=== PATIENT | male | born 1980 | race Two or more races ===

== ENCOUNTER 2021-05-21 16:52 | Observation (INO) ==
--- NOTE | 2021-05-21 17:26 | Emergency Department Note ---
History of Present Illness General Chief complaint: Cardiac Assessment Time Seen by Provider: 05/21/21 17:13 History of Present Illness Maximum Pain Intensity: 4 41-year-old male presents to the ED with a chief complaint of right-sided chest pain that started 4 days ago. He states that he cannot recall what he was doing when it started. He states that it is worse when he takes a deep breath. It feels like a pressure sensation. He also notices it when he coughs. He has not had a cough but it is states that he coughs on occasion just to clear his throat. Denies any fevers. No shortness of breath. No additional complaints. Home Medications Medication Instructions Recorded Confirmed Type ibuprofen 200 mg tablet 400 mg PO TID 05/21/21 05/21/21 History Allergies Allergy/AdvReac Type Severity Reaction Status Date / Time No Known Allergies Allergy Unverified 05/21/21 20:26 Past Med/Surg History Social History Smoking Status: Never smoker Communication Tools: IPad Feels Safe at Home: Yes Review of Systems A total of 10 systems reviewed and were otherwise negative Physical Exam Vital Signs Vital Signs - 24 hr 05/21/21 16:52 05/21/21 18:29 05/21/21 19:27 Temperature 36.8 C Temperature Source Oral Pulse Rate 51 L Pulse Rate [Finger] 41 L Pulse Rhythm Regular Pulse Rhythm [Finger] Irregular Pulse Strength Normal Pulse Strength [Finger] Normal Respiratory Rate 19 20 Respiratory Effort / Characteristics Non-Labored Non-Labored Respiratory Depth Normal Normal Respiratory Pattern Regular Blood Pressure 156/95 H Blood Pressure [Left Arm] 131/81 Blood Pressure Mean 115 Blood Pressure Mean [Left Arm] 97 Blood Pressure Position Lying Blood Pressure Position [Left Arm] Sitting Pulse Oximetry 98 98 99 Oxygen Delivery Method Room Air Room Air Room Air Oxygen Flow Rate 0 Sepsis Recent Fever Within 48 Hours No Sepsis New/Unexplained Change in Mental Status N/A Sepsis Action Taken by Nursing No Action Required 05/21/21 21:03 Temperature Temperature Source Pulse Rate Pulse Rate [Finger] 45 L Pulse Rhythm Pulse Rhythm [Finger] Pulse Strength Pulse Strength [Finger] Respiratory Rate 22 Respiratory Effort / Characteristics Non-Labored Respiratory Depth Normal Respiratory Pattern Blood Pressure Blood Pressure [Left Arm] 134/93 Blood Pressure Mean Blood Pressure Mean [Left Arm] 106 Blood Pressure Position Blood Pressure Position [Left Arm] Pulse Oximetry 99 Oxygen Delivery Method Room Air Oxygen Flow Rate Sepsis Recent Fever Within 48 Hours Sepsis New/Unexplained Change in Mental Status Sepsis Action Taken by Nursing CONSTITUTIONAL/VITAL SIGNS: Reviewed / noted above. GENERAL: Non-toxic in appearance. INTEGUMENTARY: Warm, dry, and [place]. HEAD: Normocephalic. EYES: without scleral icterus or trauma. ENT/OROPHARYNX: clear and moist. LYMPHADENOPATHY/NECK: Is supple without lymphadenopathy or meningismus. RESPIRATORY: Clear to auscultation bilaterally. No increased work of breathing. CARDIOVASCULAR: Regular rate and rhythm. GI/ABDOMEN: Soft and nontender. No organomegaly or pulsatile mass. EXTREMITIES: Warm and well perfused. BACK: No CVA tenderness. NEUROLOGICAL: Intact without focal deficits. PSYCHIATRIC: normal affect. MUSCULOSKELETAL: Normally developed with good muscle tone. TRIAGE NURSING DOCUMENTATION REVIEWED. Course Administered Medications Discontinued Medications Acetaminophen (Acetaminophen 500 Mg Tab) 500 mg PO NOW STA Stop: 05/21/21 21:39 Last Admin: 05/21/21 21:43 Dose: 500 mg Documented by: [id number] Medical Decision Making Differential Diagnosis The differential that was considered includes acute myocardial infarction, acute coronary syndrome, myocarditis, pericarditis, pericardial effusions /tamponade, esophageal perforation, thoracic aortic dissection, pulmonary embolism, pne umonia, pneumothorax, pancreatitis, shingles, acute cholecystitis, perforated abdominal viscus. Medical Records Attestation: I reviewed the patient's medical records. Home Medications Current Medication List: was personally reviewed by me Laboratory Data Result diagrams: 05/21/21 17:00 05/21/21 17:00 Lab Results 05/21/21 05/21/21 05/21/21 Range/Units 17:00 17:00 17:00 WBC 6.56 (4.8-10.8) K/uL RBC 4.44 L (4.7-6.1) M/uL Hgb 15.1 (14.0-18.0) g/dL Hct 43.1 (42-52) % MCV 97.1 (80-100) fL MCH 34.0 (25-34) pg MCHC 35.0 (32-36) g/dL RDW Std Deviation 43.2 (36.4-46.3) fL RDW Coeff of Miah 12.1 (11.5-14.5) % Plt Count 221 (130-400) K/uL MPV 11.4 H (7.4-10.4) fL Immature Gran % (Auto) 0.3 % Neut % (Auto) 41.8 % Lymph % (Auto) 43.3 % [place] % (Auto) 9.3 % Eos % (Auto) 4.7 % Baso % (Auto) 0.6 % Neut # (Auto) 2.74 (1.4-6.5) K/uL Lymph # (Auto) 2.84 (1.2-3.4) K/uL [place] # (Auto) 0.61 H (0.11-0.59) K/uL Eos # (Auto) 0.31 (0-0.5) K/uL Baso # (Auto) 0.04 (0-0.2) K/uL Immature Gran # (Auto) 0.02 (0.00-0.02) K/uL PT 11.4 (9.0-12.0) Seconds INR 1.1 (0.9-1.1) APTT 27.8 (21.0-31.0) Seconds PTT Ratio 1.0 Sodium 140 (136-145) mmol/L Potassium 4.2 (3.5-5.1) mmol/L Chloride 105 (98-107) mmol/L Carbon Dioxide 25 (21-32) mmol/L Anion Gap 10 (3-11) BUN 18 (6-23) mg/dl Creatinine 1.06 (0.6-1.4) mg/dl Est Cr Clr Drug Dosing 90.0 ml/min Est GFR ( Amer) 101.2 ml/min Est GFR (Non-Af Amer) 87.4 ml/min BUN/Creatinine Ratio 17.0 (10-20) Glucose 71 (70-99(Fasting)) mg/dl Calcium 9.2 (8.5-10.1) mg/dl Magnesium 2.0 (1.7-2.4) mg/dl Total Bilirubin 0.4 (0.2-1.0) mg/dl AST 37 (13-39) U/L ALT 46 (7-52) U/L Alkaline Phosphatase 107 H (34-104) U/L Troponin I < 0.03 (0-0.04) ng/ml Total Protein 7.8 (6.0-8.3) gm/dl Albumin 4.4 (3.4-5.0) gm/dl Globulin 3.4 (2.5-4.0) gm/dl Albumin/Globulin Ratio 1.3 (0.9-2) TSH (0.300-4.500) uIu/ml Urine Color Urine Appearance (Clear) Urine pH (4.5-7.5) Ur Specific Oral (1.000-1.030) Urine Protein (Negative) Urine Glucose (UA) (Negative) Urine Ketones (Negative) Urine Blood (Negative) Urine Nitrite (Negative) Urine Bilirubin (Negative) Urine Urobilinogen (Negative) Ur Leukocyte Esterase (Negative) Urine Opiates Screen (Neg) Ur Methadone, Qual (Neg) Urine Barbiturates (Neg) Ur Phencyclidine (PCP) (Neg) U Amphetamin/Meth Scrn (Neg) MDMA (Ecstasy) Screen (Neg) U Benzodiazepines Scrn (Neg) Ur Cocaine Metabolite (Neg) U Marijuana (THC) Screen (Neg) Lyme Disease IgG Ab (Negative) Lyme Disease IgM Ab (Negative) SARS-CoV-2, RNA, NAAT (NEGATIVE) 05/21/21 05/21/21 05/21/21 Range/Units 17:00 17:00 18:06 WBC (4.8-10.8) K/uL RBC (4.7-6.1) M/uL Hgb (14.0-18.0) g/dL Hct (42-52) % MCV (80-100) fL MCH (25-34) pg MCHC (32-36) g/dL RDW Std Deviation (36.4-46.3) fL RDW Coeff of Miah (11.5-14.5) % Plt Count (130-400) K/uL MPV (7.4-10.4) fL Immature Gran % (Auto) % Neut % (Auto) % Lymph % (Auto) % [place] % (Auto) % Eos % (Auto) % Baso % (Auto) % Neut # (Auto) (1.4-6.5) K/uL Lymph # (Auto) (1.2-3.4) K/uL [place] # (Auto) (0.11-0.59) K/uL Eos # (Auto) (0-0.5) K/uL Baso # (Auto) (0-0.2) K/uL Immature Gran # (Auto) (0.00-0.02) K/uL PT (9.0-12.0) Seconds INR (0.9-1.1) APTT (21.0-31.0) Seconds PTT Ratio Sodium (136-145) mmol/L Potassium (3.5-5.1) mmol/L Chloride (98-107) mmol/L Carbon Dioxide (21-32) mmol/L Anion Gap (3-11) BUN (6-23) mg/dl Creatinine (0.6-1.4) mg/dl Est Cr Clr Drug Dosing ml/min Est GFR ( Amer) ml/min Est GFR (Non-Af Amer) ml/min BUN/Creatinine Ratio (10-20) Glucose (70-99(Fasting)) mg/dl Calcium (8.5-10.1) mg/dl Magnesium (1.7-2.4) mg/dl Total Bilirubin (0.2-1.0) mg/dl AST (13-39) U/L ALT (7-52) U/L Alkaline Phosphatase (34-104) U/L Troponin I (0-0.04) ng/ml Total Protein (6.0-8.3) gm/dl Albumin (3.4-5.0) gm/dl Globulin (2.5-4.0) gm/dl Albumin/Globulin Ratio (0.9-2) TSH 1.900 (0.300-4.500) uIu/ml Urine Color Yellow Urine Appearance Clear (Clear) Urine pH 6.0 (4.5-7.5) Ur Specific Oral 1.006 (1.000-1.030) Urine Protein Negative (Negative) Urine Glucose (UA) Negative (Negative) Urine Ketones Negative (Negative) Urine Blood Negative (Negative) Urine Nitrite Negative (Negative) Urine Bilirubin Negative (Negative) Urine Urobilinogen Negative (Negative) Ur Leukocyte Esterase Negative (Negative) Urine Opiates Screen (Neg) Ur Methadone, Qual (Neg) Urine Barbiturates (Neg) Ur Phencyclidine (PCP) (Neg) U Amphetamin/Meth Scrn (Neg) MDMA (Ecstasy) Screen (Neg) U Benzodiazepines Scrn (Neg) Ur Cocaine Metabolite (Neg) U Marijuana (THC) Screen (Neg) Lyme Disease IgG Ab Negative (Negative) Lyme Disease IgM Ab Negative (Negative) SARS-CoV-2, RNA, NAAT (NEGATIVE) 05/21/21 05/21/21 Range/Units 18:06 21:00 WBC (4.8-10.8) K/uL RBC (4.7-6.1) M/uL Hgb (14.0-18.0) g/dL Hct (42-52) % MCV (80-100) fL MCH (25-34) pg MCHC (32-36) g/dL RDW Std Deviation (36.4-46.3) fL RDW Coeff of Miah (11.5-14.5) % Plt Count (130-400) K/uL MPV (7.4-10.4) fL Immature Gran % (Auto) % Neut % (Auto) % Lymph % (Auto) % [place] % (Auto) % Eos % (Auto) % Baso % (Auto) % Neut # (Auto) (1.4-6.5) K/uL Lymph # (Auto) (1.2-3.4) K/uL [place] # (Auto) (0.11-0.59) K/uL Eos # (Auto) (0-0.5) K/uL Baso # (Auto) (0-0.2) K/uL Immature Gran # (Auto) (0.00-0.02) K/uL PT (9.0-12.0) Seconds INR (0.9-1.1) APTT (21.0-31.0) Seconds PTT Ratio Sodium (136-145) mmol/L Potassium (3.5-5.1) mmol/L Chloride (98-107) mmol/L Carbon Dioxide (21-32) mmol/L Anion Gap (3-11) BUN (6-23) mg/dl Creatinine (0.6-1.4) mg/dl Est Cr Clr Drug Dosing ml/min Est GFR ( Amer) ml/min Est GFR (Non-Af Amer) ml/min BUN/Creatinine Ratio (10-20) Glucose (70-99(Fasting)) mg/dl Calcium (8.5-10.1) mg/dl Magnesium (1.7-2.4) mg/dl Total Bilirubin (0.2-1.0) mg/dl AST (13-39) U/L ALT (7-52) U/L Alkaline Phosphatase (34-104) U/L Troponin I (0-0.04) ng/ml Total Protein (6.0-8.3) gm/dl Albumin (3.4-5.0) gm/dl Globulin (2.5-4.0) gm/dl Albumin/Globulin Ratio (0.9-2) TSH (0.300-4.500) uIu/ml Urine Color Urine Appearance (Clear) Urine pH (4.5-7.5) Ur Specific Oral (1.000-1.030) Urine Protein (Negative) Urine Glucose (UA) (Negative) Urine Ketones (Negative) Urine Blood (Negative) Urine Nitrite (Negative) Urine Bilirubin (Negative) Urine Urobilinogen (Negative) Ur Leukocyte Esterase (Negative) Urine Opiates Screen Neg (Neg) Ur Methadone, Qual Neg (Neg) Urine Barbiturates Neg (Neg) Ur Phencyclidine (PCP) Neg (Neg) U Amphetamin/Meth Scrn Neg (Neg) MDMA (Ecstasy) Screen Neg (Neg) U Benzodiazepines Scrn Neg (Neg) Ur Cocaine Metabolite Neg (Neg) U Marijuana (THC) Screen Neg (Neg) Lyme Disease IgG Ab (Negative) Lyme Disease IgM Ab (Negative) SARS-CoV-2, RNA, NAAT NEGATIVE (NEGATIVE) Imaging Data Radiologist's Impression: Chest X-Ray 05/21/21 17:18 XR chest 1V portable HISTORY: 41 years-old Male Chest Pain acute atypical chest pain COMPARISON: None TECHNIQUE: Portable AP view of the chest FINDINGS: The cardiomediastinal and hilar silhouettes are within normal limits. No pneumothorax, pleural effusion, airspace consolidation or overt pulmonary edema. The bones of the chest appear grossly intact. IMPRESSION: No acute process. ACT 112: Negative or not required by law. The above report was generated using voice recognition software. It may contain grammatical, syntax or spelling errors. Electronically signed by: Bacilio Navarrete M.D. 05/21/2021 5:31 PM ECG Data Attestation: I personally reviewed and interpreted this ECG as follows: Additional Comments: Twelve-lead EKG: Per my interpretation shows a sinus bradycardia at a rate of 45 with a sinus arrhythmia. No ST elevations. No PVCs. MDM Narrative 41-year-old male presents with right-sided chest pain for 4 days as detailed above. The patient's chest x-ray was negative for acute disease. EKG shows a sinus bradycardia. He occasionally had junctional rhythm on the monitor. His heart rate sometimes dips into the low 30s. He seems to be hemodynamically stable with that. The patient has a negative troponin and unremarkable CBC and chemistry panel. Lyme test was negative. Urine did not show infection and drug screen was negative as well. Because of the patient's bradycardia with sometimes pauses and junctional rhythm, he will be seen by the hospitalist for further inpatient evaluation and care. Impression & Plan Chest pain, Bradycardia Discharge Plan Visit Data Chief Complaint: Cardiac Assessment ED Provider: Danilo Patiño Discharge Problem: Chest pain, Bradycardia Patient Disposition: Being Evaluated by Hospitalist Forms Stand Alone Forms: [facility], [facility] Emergency Department, Important Visit Information Prescriptions Prescriptions: No Action ibuprofen 200 mg Tablet 400 mg PO TID RF: 0 Referrals Referrals: PCP,NO [Physician] -
--- NOTE | 2021-05-21 17:33 | XRay Report ---
XR chest 1V portable HISTORY: 41 years-old Male Chest Pain acute atypical chest pain COMPARISON: None TECHNIQUE: Portable AP view of the chest FINDINGS: The cardiomediastinal and hilar silhouettes are within normal limits. No pneumothorax, pleural effusi on, airspace consolidation or overt pulmonary edema. The bones of the chest appear grossly intact. IMPRESSION: No acute process. ACT 112: Negative or not required by law. The above report was generated using voice recognition software. It may contain grammatical, syntax o r spelling errors. Electronically signed by: Bacilio Navarrete M.D. 05/21/2021 5:31 PM
[2021-05-21 18:33] LABS: Basophils # (auto) 0.04 K/uL (0-0.2); Basophils % (auto) 0.6 %; Eosinophils # (auto) 0.31 K/uL (0-0.5); Eosinophils % (auto) 4.7 %; Hematocrit (blood only) 43.1 % (42-52); Hemoglobin 15.1 g/dL (14.0-18.0); Immature Granulocytes # (auto) 0.02 K/uL (0.00-0.02); Immature Granulocytes % (auto) 0.3 %; Lymphocytes # (auto) 2.84 K/uL (1.2-3.4); Lymphocytes % (auto) 43.3 %; Mean Corpuscular Volume 97.1 fL (80-100); Mean Platelet Volume 11.4 fL (7.4-10.4); Monocytes # (auto) 0.61 K/uL (0.11-0.59); Monocytes % (auto) 9.3 %; Neutrophils # (auto) 2.74 K/uL (1.4-6.5); Neutrophils % (auto) 41.8 %; Platelet Count 221 K/uL (130-400); RDW Coefficient of Variation 12.1 % (11.5-14.5); RDW Standard Deviation 43.2 fL (36.4-46.3); Red Blood Count 4.44 M/uL (4.7-6.1); White Blood Count 6.56 K/uL (4.8-10.8)
[2021-05-21 18:42] LABS: INR 1.1 (0.9-1.1); Partial Thromboplastin Time 27.8 Seconds (21.0-31.0); Prothrombin Time 11.4 Seconds (9.0-12.0)
[2021-05-21 19:07] LABS: Troponin I < 0.03 ng/ml (0-0.04)
[2021-05-21 19:16] LABS: Alanine Aminotransferase 46 U/L (7-52); Albumin Globulin Ratio 1.3 (0.9-2); Albumin Level 4.4 gm/dl (3.4-5.0); Alkaline Phosphatase 107 U/L (34-104); Anion Gap 10 (3-11); Aspartate Aminotransferase 37 U/L (13-39); Bilirubin,Total 0.4 mg/dl (0.2-1.0); Blood Urea Nitrogen 18 mg/dl (6-23); Calcium 9.2 mg/dl (8.5-10.1); Carbon Dioxide 25 mmol/L (21-32); Chloride 105 mmol/L (98-107); Est GFR (African American) 101.2 ml/min; Est GFR (Non-African American) 87.4 ml/min; Globulin 3.4 gm/dl (2.5-4.0); Glucose 71 mg/dl (70-99(Fasting)); Potassium 4.2 mmol/L (3.5-5.1); Sodium 140 mmol/L (136-145); Total Protein 7.8 gm/dl (6.0-8.3)
[2021-05-21 19:21] LABS: Lyme Ab IgG w/WB Rflx Negative (Negative); Lyme Ab IgM w/WB Rflx Negative (Negative)
[2021-05-21 19:56] LABS: Appearance Urine Clear (Clear); Bilirubin Urine Negative (Negative); Blood Urine Negative (Negative); Color Urine Yellow; Glucose Urine UA Negative (Negative); Ketones Urine Negative (Negative); Leukocyte Esterase Urine Negative (Negative); Nitrite Urine Negative (Negative); Protein Urine Negative (Negative); Specific Gravity Urine 1.006 (1.000-1.030); Urobilinogen Urine Negative (Negative)
[2021-05-21 20:25] LABS: Amphetamines+Metham, Urine Neg (Neg); Barbiturates, Urine Neg (Neg); Benzodiazepine, Urine Neg (Neg); Cocaine, Urine Neg (Neg); MDMA (Ecstacy), Urine Neg (Neg); Methadone, Urine Neg (Neg); Opiate, Urine Neg (Neg); Phencyclidine, Urine Neg (Neg)
[2021-05-21] MEDS ORDERED: ACETAMINOPHEN 500 MG TAB PO STA (21:38)
[2021-05-21] MEDS ORDERED: POLYETHYLENE (MIRALAX) 17 GM PACK PO PRN (23:58)
[2021-05-21] MEDS ORDERED: ACETAMINOPHEN 325 MG TAB PO PRN (23:58)
[2021-05-21] MEDS ORDERED: ONDANSETRON INJ 2 MG/ML 2 ML VIAL IV PRN (23:58)
[2021-05-21] MEDS ORDERED: NITROGLYCERIN SL 0.4 MG/TAB TAB SL PRN (23:58)
[2021-05-22 00:52] LABS: D Dimer 8180 ug/L FEU (0-500)
[2021-05-22] MEDS ORDERED: SODIUM CHLORIDE 0.9% 1000ML 1,000 ML IV SCH (01:00)
[2021-05-22] MEDS ORDERED: OPTIRAY 320 125ml IV ONE (01:49)
--- NOTE | 2021-05-22 02:30 | History and Physical Report ---
DATE OF ADMISSION: 05/21/2021. CHIEF COMPLAINT: Chest pain. HISTORY OF PRESENT ILLNESS: A 41-year-old male with no significant past medical history who presents with chest pain. The patient comes from [facility]. He states he was doing pushups about 4 days ago when he started having some right-sided chest pain going to the back, burning kind of pain, 5/10 in severity. Pain is more when he takes a deep breath, and had some shortness of breath, which prompted him to come to the ER. In the ER, his initial workup is negative and hemodynamically stable, but he is having sinus bradycardia and we were called for admission. Currently, resting comfortably. Denies any headache. No blurred vision, no earache, no runny nose, no sore throat, no cough. Appetite is good. No nausea, no abdominal pain. Normal bowel and bladder movements. Otherwise, active. ALLERGIES: No known drug allergies. PAST MEDICAL HISTORY: None. PAST SURGICAL HISTORY: None. MEDICATIONS: None. FAMILY HISTORY: The patient does not know of any family history. SOCIAL HISTORY: No smoking. Alcohol, used to drink socially. REVIEW OF SYSTEMS: As per HPI. Rest of review of systems is negative. PHYSICAL EXAMINATION: GENERAL: The patient is of moderate build, not in acute distress. VITAL SIGNS: Temperature 36.8, pulse 45, respiratory rate 22, blood pressure 134/93, oxygen 99% on room air. HEENT: Right pupil slightly more dilated than left. Oral mucosa moist. NECK: No JVD. No neck masses. CARDIOVASCULAR: S1 and S2 heard. Bradycardia. No murmurs. RESPIRATORY SYSTEM: Normal AP diameter. No accessory muscle use. No wheezing, no crackles. ABDOMEN: Soft, bowel sounds present, nontender, no distention. CENTRAL NERVOUS SYSTEM: Cranial nerves II through XII are grossly intact, nonfocal. EXTREMITIES: No edema, no erythema. LABORATORY DATA: WBC 6.5, hemoglobin 15.1, hematocrit 43.1, platelets 221. PT 11.4, INR 1.1, APTT 27.8. Sodium 140, potassium 4.2, chloride 105, bicarbonate 25, CO2 of 25, BUN 18, creatinine 1.06, serum glucose 71, calcium 9.2, magnesium 2, total bilirubin 0.4, AST 34, ALT 46, alkaline phosphatase 107. Troponin I less than 0.03. Urinalysis negative. Drug screen negative. Lyme screen negative. SARS-CoV-2 rapid test negative. IMAGING DATA: Chest x-ray, no acute process. EKG: Sinus bradycardia with sinus arrhythmia at a rate of 45 and T-wave inversion in leads V3, V4. ASSESSMENT AND PLAN: This is a 41-year-old male who presents with chest pain. 1. Chest pain: Started after pushups 4 days ago. Could be musculoskeletal. The patient says he is having more pain when he is taking deep breath. Elevated d dimer. CTA chest preliminary report NO PE.. Will do serial cardiac enzymes and echo. Will follow cpk levels. Keep n.p.o. after midnight and consult cardiology in the a.m. 2. Sinus bradycardia: As per the ER was junctional on monitor for some time.. Will follow echo and serial enzymes repeat ekg and tele monitor and await cardiac input. 3. Deep venous thrombosis prophylaxis: Sequential compression devices. DISPOSITION: Admit to observation in tele floor. Social service to help with discharge planning. Level 1 full code. Addendum: Question of right pupil slightly more dilated than the left. The patient has no headache or any nausea or any other symptoms. CT head ok.. Job ID: [id number] [facility]
--- NOTE | 2021-05-22 07:13 | CT Scan Report ---
HEAD CT NONCONTRAST CT DOSE: 614.27 mGy.cm HISTORY: right pupil sluggish reaction to light? TECHNIQUE: Multiaxial CT images of the head were performed without the use of intravenous contrast. A utomated exposure control was utilized for this study. A dose lowering technique was utilized adheri ng to the principles of ALARA. Comparison: None. Findings: The paranasal sinuses and mastoid air cells are clear. The calvarium and skull base are int act. The ventricles and sulci are within normal limits. There is no mass, hematoma, midline shift, or acute infarct. Small amount of residual contrast within the brain from the recent chest CTA. Impression: No acute intracranial abnormality. ACT 112: Negative or not required by law. Electronically signed by: Natanael Wheeler M.D. 05/22/2021 7:12 AM
--- NOTE | 2021-05-22 07:31 | CT Scan Report ---
CT angio chest PE protocol CLINICAL HISTORY: Chest pain. Evaluate for pulmonary embolus. COMPARISON STUDY: Portable chest from 05/21/2021 CT DOSE: 347.55 mGy.cm TECHNIQUE: CT Angio of the chest was performed.followed by image post processing with coronal, and s agittal MIP reformats. Contrast Volume: Optiray 320, 116 ml FINDINGS: Vasculature: There is homogeneous perfusion of the pulmonary vasculature bilaterally. No intraluminal filling defects or evidence for pulmonary embolus is seen. Airway: The airway is clear. No endobronchial lesion is identified. Lungs: The lungs are clear of acute alveolar opacities, air bronchograms or pulmonary nodules. Pleura: There is no evidence for pleural effusion. There is no evidence for pneumothorax. Mediastinum: There is no evidence for pathologic adenopathy. The heart size is within normal limits. The thoracic aorta is within normal limits. There is no evidence for pericardial effusion. Upper abdomen:The adrenal glands are normal bilaterally. Osseous structures: There is no acute osseous pathology. Impression: 1. No CTA evidence for pulmonary embolus. 2. No acute chest disease. ACT 112: Negative or not required by law. Electronically signed by: Tariq Ware M.D. 05/22/2021 7:30 AM
[2021-05-22 07:45] LABS: Basophils # (auto) 0.05 K/uL (0-0.2); Basophils % (auto) 0.7 %; Eosinophils # (auto) 0.25 K/uL (0-0.5); Eosinophils % (auto) 3.5 %; Hematocrit (blood only) 45.3 % (42-52); Hemoglobin 15.9 g/dL (14.0-18.0); Immature Granulocytes # (auto) 0.01 K/uL (0.00-0.02); Immature Granulocytes % (auto) 0.1 %; Lymphocytes # (auto) 3.03 K/uL (1.2-3.4); Lymphocytes % (auto) 41.9 %; Mean Corpuscular Hemoglobin 33.8 pg (25-34); Mean Corpuscular Hgb Conc 35.1 g/dL (32-36); Mean Corpuscular Volume 96.4 fL (80-100); Mean Platelet Volume 10.7 fL (7.4-10.4); Monocytes # (auto) 0.48 K/uL (0.11-0.59); Monocytes % (auto) 6.6 %; Neutrophils # (auto) 3.41 K/uL (1.4-6.5); Neutrophils % (auto) 47.2 %; Platelet Count 223 K/uL (130-400); RDW Coefficient of Variation 12.1 % (11.5-14.5); RDW Standard Deviation 42.8 fL (36.4-46.3); White Blood Count 7.23 K/uL (4.8-10.8)
[2021-05-22 08:29] LABS: Anion Gap 7 (3-11); Blood Urea Nitrogen 14 mg/dl (6-23); Carbon Dioxide 27 mmol/L (21-32); Chloride 107 mmol/L (98-107); Est GFR (African American) 101.2 ml/min; Est GFR (Non-African American) 87.4 ml/min; Sodium 141 mmol/L (136-145)
[2021-05-22 08:30] LABS: BUN Creatinine Ratio 13.2 (10-20); Calcium 9.5 mg/dl (8.5-10.1); Creatinine Clr Calc Pharmacy 86.2 ml/min; Glucose 87 mg/dl (70-99(Fasting))
[2021-05-22 08:50] LABS: Troponin I < 0.03 ng/ml (0-0.04)
[2021-05-22] MEDS ORDERED: ASPIRIN 81 MG ECTAB PO SCH (09:00)
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
--- NOTE | 2021-05-22 14:34 | Electrocardiogram Report ---
Test Reason : Blood Pressure : / mmHG Vent. Rate : 045 BPM Atrial Rate : 045 BPM P-R Int : 164 ms QRS Dur : 100 ms QT Int : 468 ms P-R-T Axes : 045 004 018 degrees QTc Int : 404 ms Sinus bradycardia with sinus arrhythmia T wave abnormality, consider anterior ischemia Abnormal ECG No previous ECGs available Confirmed by Kirk Chamorro ([id number]) on 05/22/2021 2:33:43 PM Referred By: Tyler Cruz Confirmed By:Kirk Chamorro
--- NOTE | 2021-05-22 14:36 | Electrocardiogram Report ---
Test Reason : Blood Pressure : / mmHG Vent. Rate : 037 BPM Atrial Rate : 037 BPM P-R Int : 148 ms QRS Dur : 104 ms QT Int : 506 ms P-R-T Axes : 047 000 013 degrees QTc Int : 397 ms Marked sinus bradycardia with occasional Premature atrial complexes T wave abnormality, consider anterior ischemia Abnormal ECG When compared with ECG of 21-MAY-2021 17:00, (unconfirmed) No significant change was found Confirmed by Kirk Chamorro ([id number]) on 05/22/2021 2:35:54 PM Referred By: Tyler Cruz Confirmed By:Kirk Chamorro
--- NOTE | 2021-05-22 14:37 | Electrocardiogram Report ---
Test Reason : Blood Pressure : / mmHG Vent. Rate : 038 BPM Atrial Rate : 038 BPM P-R Int : 000 ms QRS Dur : 096 ms QT Int : 508 ms P-R-T Axes : 000 008 019 degrees QTc Int : 403 ms Sinus bradycardia with junctional escape complexes Nonspecific T wave abnormality Abnormal ECG When compared with ECG of 21-MAY-2021 18:41, (unconfirmed) No significant change Confirmed by Kirk Chamorro ([id number]) on 05/22/2021 2:36:38 PM Referred By: Tyler Cruz Confirmed By:Kirk Chamorro
--- NOTE | 2021-05-22 14:41 | Electrocardiogram Report ---
Test Reason : Blood Pressure : / mmHG Vent. Rate : 041 BPM Atrial Rate : 041 BPM P-R Int : 146 ms QRS Dur : 086 ms QT Int : 472 ms P-R-T Axes : 023 003 -21 degrees QTc Int : 389 ms Marked sinus bradycardia with Premature atrial complexes in a pattern of bigeminy T wave abnormality, consider anterolateral ischemia Abnormal ECG When compared with ECG of 21-MAY-2021 18:41, (unconfirmed) T wave inversion now evident in Anterior leads Confirmed by Kirk Chamorro ([id number]) on 05/22/2021 2:41:11 PM Referred By: Tyler Cruz Confirmed By:Kirk Chamorro
--- NOTE | 2021-05-22 14:50 | Electrocardiogram Report ---
Test Reason : Blood Pressure : / mmHG Vent. Rate : 039 BPM Atrial Rate : 039 BPM P-R Int : 162 ms QRS Dur : 100 ms QT Int : 504 ms P-R-T Axes : 031 -01 -02 degrees QTc Int : 405 ms Marked sinus bradycardia T wave abnormality, consider anterior ischemia Abnormal ECG When compared with ECG of 22-MAY-2021 00:35, (unconfirmed) Premature atrial complexes are no longer Present Confirmed by Kirk Chamorro ([id number]) on 05/22/2021 2:50:24 PM Referred By: Tyler Cruz Confirmed By:Kirk Chamorro
--- NOTE | 2021-05-22 16:27 | Discharge Summary ---
Date of Service May 22, 2021 Principal Diagnosis Atypical chest pain sinus bradycardia Discharge Exam CONSTITUTIONAL: WNWD, vitals as above, generally well-appearing, NAD EYES: normal conjunctivae, no scleral icterus ENT: external ear and nose normal, MMM NECK: trachea midline, RESPIRATORY: clear to auscultation bilaterally, no crackles, rales or wheezes, normal respiratory effort CARDIOVASCULAR: regular rate and rhythm, S1 and 2 heard without murmurs, gallops or rubs, no JVD, no peripheral edema CHEST: inspection of chest was normal GASTROINTESTINAL: soft, nontender, ND, no guarding MUSCULOSKELETAL: strength 5/5 throughout, head is normocephalic and atraumatic, neck supple, normal palpation of chest wall without tenderness SKIN: warm and dry NEUROLOGIC: CN 2-12 grossly intact, no sensory deficit, normal cognition, normal speech, no tremor PSYCHIATRIC: alert cooperative and oriented to person, place and time. Euthymic mood, makes good eye contact, language grossly intact, recent and remote memory grossly intact. Discharge Data Allergies Allergy/AdvReac Type Severity Reaction Status Date / Time No Known Allergies Allergy Unverified 05/21/21 20:26 Consultations 05/21/21 21:03 ED Decision to Admit Stat 05/22/21 08:00 Consult Cardiology Routine Ordered Studies Laboratory Results WBC 7.23 K/uL (4.8-10.8) 05/22/21 06:37 RBC 4.70 M/uL (4.7-6.1) 05/22/21 06:37 Hgb 15.9 g/dL (14.0-18.0) 05/22/21 06:37 Hct 45.3 % (42-52) 05/22/21 06:37 MCV 96.4 fL (80-100) 05/22/21 06:37 MCH 33.8 pg (25-34) 05/22/21 06:37 MCHC 35.1 g/dL (32-36) 05/22/21 06:37 RDW Std Deviation 42.8 fL (36.4-46.3) 05/22/21 06:37 RDW Coeff of Miah 12.1 % (11.5-14.5) 05/22/21 06:37 Plt Count 223 K/uL (130-400) 05/22/21 06:37 MPV 10.7 fL (7.4-10.4) H 05/22/21 06:37 Immature Gran % (Auto) 0.1 % 05/22/21 06:37 Neut % (Auto) 47.2 % 05/22/21 06:37 Lymph % (Auto) 41.9 % 05/22/21 06:37 [place] % (Auto) 6.6 % 05/22/21 06:37 Eos % (Auto) 3.5 % 05/22/21 06:37 Baso % (Auto) 0.7 % 05/22/21 06:37 Neut # (Auto) 3.41 K/uL (1.4-6.5) 05/22/21 06:37 Lymph # (Auto) 3.03 K/uL (1.2-3.4) 05/22/21 06:37 [place] # (Auto) 0.48 K/uL (0.11-0.59) 05/22/21 06:37 Eos # (Auto) 0.25 K/uL (0-0.5) 05/22/21 06:37 Baso # (Auto) 0.05 K/uL (0-0.2) 05/22/21 06:37 Immature Gran # (Auto) 0.01 K/uL (0.00-0.02) 05/22/21 06:37 PT 11.4 Seconds (9.0-12.0) 05/21/21 17:00 INR 1.1 (0.9-1.1) 05/21/21 17:00 APTT 27.8 Seconds (21.0-31.0) 05/21/21 17:00 PTT Ratio 1.0 05/21/21 17:00 D-Dimer 8180 ug/L FEU (0-500) H* 05/22/21 00:17 Sodium 141 mmol/L (136-145) 05/22/21 06:40 Potassium 4.0 mmol/L (3.5-5.1) 05/22/21 06:40 Chloride 107 mmol/L (98-107) 05/22/21 06:40 Carbon Dioxide 27 mmol/L (21-32) 05/22/21 06:40 Anion Gap 7 (3-11) 05/22/21 06:40 BUN 14 mg/dl (6-23) 05/22/21 06:40 Creatinine 1.06 mg/dl (0.6-1.4) 05/22/21 06:40 Est Cr Clr Drug Dosing 86.2 ml/min 05/22/21 06:40 Est GFR ( Amer) 101.2 ml/min 05/22/21 06:40 Est GFR (Non-Af Amer) 87.4 ml/min 05/22/21 06:40 BUN/Creatinine Ratio 13.2 (10-20) 05/22/21 06:40 Glucose 87 mg/dl (70-99(Fasting)) 05/22/21 06:40 Calcium 9.5 mg/dl (8.5-10.1) 05/22/21 06:40 Magnesium 2.0 mg/dl (1.7-2.4) 05/22/21 06:40 Total Bilirubin 0.4 mg/dl (0.2-1.0) 05/21/21 17:00 AST 37 U/L (13-39) 05/21/21 17:00 ALT 46 U/L (7-52) 05/21/21 17:00 Alkaline Phosphatase 107 U/L (34-104) H 05/21/21 17:00 Total Creatine Kinase 66 U/L (30-223) 05/22/21 06:37 Troponin I < 0.03 ng/ml (0-0.04) 05/22/21 08:59 Total Protein 7.8 gm/dl (6.0-8.3) 05/21/21 17:00 Albumin 4.4 gm/dl (3.4-5.0) 05/21/21 17:00 Globulin 3.4 gm/dl (2.5-4.0) 05/21/21 17:00 Albumin/Globulin Ratio 1.3 (0.9-2) 05/21/21 17:00 TSH 1.900 uIu/ml (0.300-4.500) 05/21/21 17:00 Urine Color Yellow 05/21/21 18:06 Urine Appearance Clear (Clear) 05/21/21 18:06 Urine pH 6.0 (4.5-7.5) 05/21/21 18:06 Ur Specific [place] 1.006 (1.000-1.030) 05/21/21 18:06 Urine Protein Negative (Negative) 05/21/21 18:06 Urine Glucose (UA) Negative (Negative) 05/21/21 18:06 Urine Ketones Negative (Negative) 05/21/21 18:06 Urine Blood Negative (Negative) 05/21/21 18:06 Urine Nitrite Negative (Negative) 05/21/21 18:06 Urine Bilirubin Negative (Negative) 05/21/21 18:06 Urine Urobilinogen Negative (Negative) 05/21/21 18:06 Ur Leukocyte Esterase Negative (Negative) 05/21/21 18:06 Nasal Screen MRSA (PCR) Negative (Negative) 05/22/21 Unknown Urine Opiates Screen Neg (Neg) 05/21/21 18:06 Ur Methadone, Qual Neg (Neg) 05/21/21 18:06 Urine Barbiturates Neg (Neg) 05/21/21 18:06 Ur Phencyclidine (PCP) Neg (Neg) 05/21/21 18:06 U Amphetamin/Meth Scrn Neg (Neg) 05/21/21 18:06 MDMA (Ecstasy) Screen Neg (Neg) 05/21/21 18:06 U Benzodiazepines Scrn Neg (Neg) 05/21/21 18:06 Ur Cocaine Metabolite Neg (Neg) 05/21/21 18:06 U Marijuana (THC) Screen Neg (Neg) 05/21/21 18:06 Lyme Disease IgG Ab Negative (Negative) 05/21/21 17:00 Lyme Disease IgM Ab Negative (Negative) 05/21/21 17:00 SARS-CoV-2, RNA, NAAT NEGATIVE (NEGATIVE) 05/21/21 21:00 Impressions Chest X-Ray 05/21/21 17:18 XR chest 1V portable HISTORY: 41 years-old Male Chest Pain acute atypical chest pain COMPARISON: None TECHNIQUE: Portable AP view of the chest FINDINGS: The cardiomediastinal and hilar silhouettes are within normal limits. No pneumothorax, pleural effusion, airspace consolidation or overt pulmonary edema. The bones of the chest appear grossly intact. IMPRESSION: No acute process. ACT 112: Negative or not required by law. The above report was generated using voice recognition software. It may contain grammatical, syntax or spelling errors. Electronically signed by: Bacilio Navarrete M.D. 05/21/2021 5:31 PM Chest CTA 05/22/21 00:58 CT angio chest PE protocol CLINICAL HISTORY: Chest pain. Evaluate for pulmonary embolus. COMPARISON STUDY: Portable chest from 05/21/2021 CT DOSE: 347.55 mGy.cm TECHNIQUE: CT Angio of the chest was performed.followed by image post processing with coronal, and sagittal MIP reformats. Contrast Volume: Optiray 320, 116 ml FINDINGS: Vasculature: There is homogeneous perfusion of the pulmonary vasculature bilaterally. No intraluminal filling defects or evidence for pulmonary embolus is seen. Airway: The airway is clear. No endobronchial lesion is identified. Lungs: The lungs are clear of acute alveolar opacities, air bronchograms or pulmonary nodules. Pleura: There is no evidence for pleural effusion. There is no evidence for pneumothorax. Mediastinum: There is no evidence for pathologic adenopathy. The heart size is within normal limits. The thoracic aorta is within normal limits. There is no evidence for pericardial effusion. Upper abdomen:The adrenal glands are normal bilaterally. Osseous structures: There is no acute osseous pathology. Impression: 1. No CTA evidence for pulmonary embolus. 2. No acute chest disease. ACT 112: Negative or not required by law. Electronically signed by: Tariq Ware M.D. 05/22/2021 7:[address] 05/22/21 06:[address] DOSE: 614.27 mGy.cm HISTORY: right pupil sluggish reaction to light? TECHNIQUE: Multiaxial CT images of the head were performed without the use of intravenous contrast. Automated exposure control was utilized for this study. A dose lowering technique was utilized adhering to the principles of ALARA. Comparison: None. Findings: The paranasal sinuses and mastoid air cells are clear. The calvarium and skull base are intact. The ventricles and sulci are within normal limits. There is no mass, hematoma, midline shift, or acute infarct. Small amount of residual contrast within the brain from the recent chest CTA. Impression: No acute intracranial abnormality. ACT 112: Negative or not required by law. Electronically signed by: Natanael Wheeler M.D. 05/22/2021 7:12 AM Hospital Course (1) Chest pain: (2) Bradycardia: 41 yo active prisoner admitted with chest pain, described as atypical for angina. This patient is very active playing sports 4 times weekly and exercising daily. Denied any lightheadedness, dizziness, syncope. EKG revealed sinus bradycardia with occasional junctional escape beasts noted on telemetry. Heart rate in the 30-40s. There was no evidence of Lyme or hypothyroidism on workup, toxicology screen was negative. Echocardiogram demonstrated normal LV function without significant valvular pathology. A stress test was performed for evaluation of chest pain and to assess chronotropic competence in the setting of marked resting bradycardia. He had an appropriate heart rate response to exercise with no evidence of chronotropic incompetence and the study was normal with no evidence of ischemia. He was discharged in stable condition with close primary care follow-up recommended. Total Time Total Time Spent Total Time Spent (In Minutes): 60 Discharge Plan Discharge Items [facility] Disposition[facility] Reason For Visit: CARDIAC ASSESEMENT Discharge Diagnosis: Atypical chest pain sinus bradycardia Condition on Discharge: Good Activity: Resume your previous activity Non-emergency contact: Primary Care Provider Call non-emergency contact if: you have any medication questions, your symptoms worsen, your pain is not controlled, your pain is worsening, your pain is unusual for you and your pain is concerning for you Follow-up/Referrals: Tyler Cruz DO [Primary Care Provider] - Diet: Regular Addtl Attending Provider Instructions: Your chest pain was not considered to be from cardiac etiology. Your stress test was normal. Taking medications like Ibuprofen can be hard on your stomach, and may be related to your symptoms. I would recommend this be used only as needed, and not to be taken consistently for long periods of time. Please follow-up with your regular physician within one week of discharge to touch base and ensure your chest pain is completely resolved. It was a pleasure taking care of you! Please call if you have any questions or problems. You can reach a [facility] hospitalist on duty at [facility] 24 hours a day by calling [phone]. Take care of yourself. Michela Reyes DO [facility] Hospitalist Pending Studies at Discharge: No Skilled Items Patient informed of condition?: Yes DNR: No Discharge Level of Care: Other Communicable Disease: No Discharge Prognosis: Stable Lines: None Urinary Catheter: No Medications and DC Order Prescriptions: Discontinued ibuprofen 200 mg Tablet 400 mg PO TID RF: 0 Admission Data Admit Date/Time: 05/21/21 22:53 Attending Provider: Michela Reyes Admit Provider: Don Rosas Primary Care Provider: Tyler Cruz Other Providers: Don Rosas ; Tyler Proctor ; Ronal Farrell ; Roger Hawkins ; Gordon Prado ; Giorgio Escobedo ; Georges Dutta ; Lorrie Pope ; Ludivina Bobo ; Kaleigh English ; Mikey Amador Other Interventions: Discharge Summary Assessment (RN) Last Done: 05/22/21 16:59
== END 2021-05-22 17:41 ==
LOC: 2S 16:52 → ED 16:52 → 2S 23:31
DX: Z20.822 Contact with and (suspected) exposure to COVID-19; R00.1 Bradycardia, unspecified; R07.89 Other chest pain